=== PATIENT | female | born 1990 | race Caucasian/White ===

== ENCOUNTER 2020-05-05 09:26 | Emergency (ER) | payer BC, OTHER ==
[~2020-05-05] VITALS: Ht 170.2 cm; Wt 109.1 kg
[~2020-05-05 09:26] MED LIST: CLOT15CR73 TP
[2020-05-05 09:54] VITALS: BP 152/94
--- NOTE | 2020-05-05 10:25 | NUR ---
Patient seen and assessed by provider.
== END 2020-05-05 10:32 | disposition home or self-care (01) ==
LOC: ER 09:27
DX: R51 Headache (principal); M79.10 Myalgia, unspecified site; Z20.828 Contact with and (suspected) exposure to other viral communicable diseases; Z88.0 Allergy status to penicillin; Z88.1 Allergy status to other antibiotic agents; Z79.899 Other long term (current) drug therapy
CPT/HCPCS: 36415; 99283

== ENCOUNTER 2022-07-12 10:48 | Emergency (ER) | payer BC, OTHER ==
[~2022-07-12] VITALS: Ht 170.2 cm; Wt 100.0 kg
[2022-07-12 11:15] VITALS: BP 158/99
[2022-07-12] MEDS ORDERED: HYDR-3965 PO (13:16)
[2022-07-12] MEDS ORDERED: ONDA4TAB12 PO (13:16)
[2022-07-12] MEDS ORDERED: ketorolac trometh. 30mg/ml inj. IM ONE (13:25)
== END 2022-07-12 13:50 | disposition home or self-care (01) ==
LOC: ER 10:49
DX: S43.402A Unspecified sprain of left shoulder joint, initial encounter (principal); Z88.0 Allergy status to penicillin; Z88.1 Allergy status to other antibiotic agents; Z91.041 Radiographic dye allergy status; X58.XXXA Exposure to other specified factors, initial encounter; Y93.89 Activity, other specified; Y92.89 Other specified places as the place of occurrence of the external cause; Y99.8 Other external cause status
CPT/HCPCS: 73030; 96372; 99283; J1885; A4565

== ENCOUNTER 2023-07-19 21:12 | Emergency (ER) | payer OTHER, BC ==
[~2023-07-19] VITALS: Ht 170.2 cm; Wt 100.0 kg
[~2023-07-19 21:12] MED LIST changes: +ONDA4TAB12 PO
[2023-07-19 21:31] VITALS: BP 159/84; PULSE 74; TEMP 98; O2SAT 98
[2023-07-20] MEDS ORDERED: ketorolac trometh inj. 60 MG/2 ML VIAL IM ONE (01:30)
[2023-07-20] MEDS ORDERED: IBUP-1984 PO (01:33)
[2023-07-20 01:49] VITALS: RESP 18
== END 2023-07-20 01:59 | disposition home or self-care (01) ==
LOC: ER 21:12
DX: M25.512 Pain in left shoulder (principal); Z88.0 Allergy status to penicillin; Z88.1 Allergy status to other antibiotic agents; Z79.899 Other long term (current) drug therapy
CPT/HCPCS: 73030; 96372; 99283; J1885

== ENCOUNTER 2024-04-25 06:10 | Outpatient (CLI) | payer BC ==
[~2024-04-25 06:10] MED LIST changes: +ONDA-243 PO; -ONDA4TAB12 PO
[2024-04-25] MEDS ORDERED: GADOTERATE MEGLUMINE 7.5 MMOL/15 ML VIAL IV ONE (06:34)
[2024-04-25] MEDS ORDERED: LIDOcaine 1% (10mg/ml) 2ml vial ONE (06:34)
[2024-04-25] MEDS ORDERED: iohexol 300 MG/1 ML 50ml polymer ONE (06:34)
[2024-04-25] MEDS ORDERED: LIDOcaine 1% 30ml preserv. free vial ONE (06:34)
== END 2024-04-25 23:59 | disposition home or self-care (01) ==
LOC: RAD 06:10
PROVIDERS: ATTEND Pediatrics Sports Medicine
DX: M75.42 Impingement syndrome of left shoulder (principal); M75.22 Bicipital tendinitis, left shoulder
CPT/HCPCS: 23350; 73222; 77002; A9575; J3490; Q9967; 73040